=== PATIENT | female | born 1960 | race Two or more races ===

== ENCOUNTER 2017-12-16 09:00 | Outpatient (CLI) | payer OTHER | END 2017-12-16 15:22 | disposition home or self-care (01) | LOC: SONOGRAMA 09:00 | DX: R05 Cough (principal); R16.0 Hepatomegaly, not elsewhere classified; E04.8 Other specified nontoxic goiter ==

== ENCOUNTER 2023-10-11 14:05 | Outpatient (CLI) | payer OTHER | END 2023-10-11 14:20 | disposition home or self-care (01) | LOC: MAMO-SONO 14:05 | PROVIDERS: ATTEND Obstetrics & Gynecology | DX: N60.11 Diffuse cystic mastopathy of right breast (principal) ==

== ENCOUNTER 2024-08-01 10:20 | Outpatient (CLI) | payer OTHER | END 2024-08-01 10:33 | disposition home or self-care (01) | LOC: RAD 10:20 | PROVIDERS: ATTEND Physical Medicine & Rehabilitation | DX: M25.571 Pain in right ankle and joints of right foot (principal); M79.661 Pain in right lower leg ==

== ENCOUNTER 2024-10-19 08:09 | Outpatient (CLI) | payer OTHER | END 2024-10-19 08:18 | disposition home or self-care (01) | LOC: MAMO-SONO 08:09 | PROVIDERS: ATTEND Family Medicine | DX: R05.3 Chronic cough (principal); N60.11 Diffuse cystic mastopathy of right breast; N60.12 Diffuse cystic mastopathy of left breast; Z12.31 Encounter for screening mammogram for malignant neoplasm of breast; E03.8 Other specified hypothyroidism; R16.1 Splenomegaly, not elsewhere classified ==